=== PATIENT | female | born 1965 | race American Indian/Alaskan Native ===

== ENCOUNTER 2016-08-15 20:22 | Inpatient (IN) | payer OTHER ==
[2016-08-15] MEDS ORDERED: HEPARIN 10,000 UNITS/10 ML IV ONE (20:28)
[2016-08-15] MEDS ORDERED: HEPARIN IV ONE (20:28)
[2016-08-15] MEDS ORDERED: NACL 0.9% 1000 ML 1,000 ML IV ONE (20:28)
[2016-08-15] MEDS ORDERED: NACL 0.9% 500 ML 500 ML IV ONE (20:29)
[2016-08-15] MEDS ORDERED: ZOFRAN IV ONE (20:29)
[2016-08-15] MEDS ORDERED: HEPARIN 10,000 UNITS/10 ML ONE ×2 (20:34→20:46)
--- NOTE | 2016-08-15 20:37 | Emergency Department Report ---
ED Chest Pain HPI - General Stated Complaint: CHEST PAIN Time Seen by Provider: 08/15/16 20:27 Source: patient, EMS Mode of arrival: Stretcher Limitations: Other - History of Present Illness Initial Comments: 50-year-old female with apast medical history presents to the Hospital complaining of nausea, chest pain, diaphoresis. EKG in route just acute VT. This was not transmitted prior to patient arrival. Patient is mowing the lawn at 7 PM and developed nausea, generalized weakness, and diaphoresis. Patient did develop chest pain around to the hospital described as a tightness and received aspirin and 1 nitroglycerin with improvement. Patient initially pain- free upon arrival with continued diaphoresis. Patient denies any past medical history and states her last doctor visit was 2 weeks ago. Patient does smoke cigarettes. - Related Data Allergies Allergy/AdvReac Type Severity Reaction Status Date / Time No Known Allergies Allergy Unverified 08/15/16 20:47 Heart Score - HEART Score History: Highly suspicious EKG: Significant ST-depression Age: 45-65 Risk factors: 1-2 risk factors Troponin: < normal limit HEART Score: 6 ED Review of Systems ROS: Stated complaint: CHEST PAIN Other details as noted in HPI Comment: All other systems reviewed and negative Other: Constitutional: No fevers chills Eyes: No eye pain visual changes ENT: No ear pain or throat pain Neck: Denies pain Respiratory: Denies cough wheezing shortness of breath Cardiovascular: Denies palpitations, syncope GI: Denies abdominal pain, vomiting, diarrhea : Denies dysuria Musculoskeletal: Denies back pain, joint swelling Skin: Denies rash, lesions, erythema Neurologic: Denies headache, numbness, weakness Psychiatric: Denies suicidal ideation, hallucinations ED Past Medical Hx - Past Medical History Previous Medical History?: No - Surgical History Past Surgical History?: No - Social History Smoking Status: Current Every Day Smoker Substance Use Type: Alcohol ED Physical Exam - General Limitations: Other - Other Other exam information: General: No limitations Head exam: Atraumatic, normocephalic Eyes exam: Normal appearance ENT: Moist mucous membrane, normal oropharynx Neck exam: Normal inspection, full range of motion, no meningismus nontender Respiratory exam: Clear to auscultation bilateral, no wheezes, rales, crackles Cardiovascular: Normal rate and rhythm, normal heart sounds Abdomen: Soft, nondistended, and nontender, with normal bowel sounds, no rebound, or guarding Extremity: Full range of motion normal inspection no deformity, no calf tenderness or edema Back: Normal Inspection, full range of motion, no tenderness Neurologic: Alert, oriented x3, cranial nerves intact, no motor or sensory deficit Psychiatric: normal affect, normal mood Skin: Diaphoresis ED Course Vital Signs 08/15/16 08/15/16 20:31 21:39 Pulse Rate 78 74 Respiratory 24 16 Rate Blood Pressure 89/55 117/80 [Left] O2 Sat by Pulse 98 Oximetry - Reevaluation(s) Reevaluation #1: 08/15/16 20:40 Pain has redeveloped since presenting to the ED. Patient has significant hypotension after nitroglycerin which has since resolved. Suspect that patient has a inferior wall /right ventricle VT and has attempted to give further nitrates. Dilaudid 0.5 mg ordered for pain. Heparin drip has been ordered. - Consultations Consultation #1: 08/15/16 20:20 EMS EKG and subsequently EKG obtained here verifies ST elevation VT. He is her reviewed by Dr. Domo Dos Santos it lead demolition hammer operator who agrees and we'll activate the Fire Prevention Inspector. Agrees a heparin drip. GIOVANNY score - Giovanny Score Age > 65: (0) No Aspirin use within the Past 7 Days: (0) No 3 or more CAD Risk Factors: (1) Yes 2 or more Angina events in past 24 hrs: (1) Yes Known CAD with more than 50% Stenosis: (0) No Elevated Cardiac Markers: (0) No ST Deviation Greater than 0.5mm: (1) Yes GIOVANNY Score: 3 ED Medical Decision Making - Lab Data Result diagrams: 08/15/16 20:37 08/15/16 20:37 Lab Results 08/15/16 08/15/16 08/15/16 Range/Units 20:26 20:37 20:37 WBC 6.6 (4.5-11.0) K/mm3 RBC 4.40 (3.65-5.03) M/mm3 Hgb 11.9 (10.1-14.3) gm/dl Hct 36.4 (30.3-42.9) % MCV 83 (79-97) fl MCH 27 L (28-32) pg MCHC 33 (30-34) % RDW 14.7 (13.2-15.2) % Plt Count 290 (140-440) K/mm3 Lymph % (Auto) Concert Singer Seg Neutrophils % Concert Singer PT 12.4 (12.2-14.9) Sec. INR 0.88 (0.87-1.13) APTT 26.4 (24.2-36.6) Sec. Sodium (137-145) mmol/L Potassium (3.6-5.0) mmol/L Chloride (98-107) mmol/L Carbon Dioxide (22-30) mmol/L Anion Gap mmol/L BUN (7-17) mg/dL Creatinine (0.7-1.2) mg/dL Estimated GFR ml/min BUN/Creatinine Ratio % Glucose (65-100) mg/dL POC Glucose 128 H (70-105) Calcium (8.4-10.2) mg/dL Total Creatine Kinase (30-135) units/L CK-MB (CK-2) (0.0-4.0) ng/mL CK-MB (CK-2) Rel Index (0-4) Troponin T (0.00-0.029) ng/mL Blood Type Antibody Screen 08/15/16 08/15/16 Range/Units 20:37 20:37 WBC (4.5-11.0) K/mm3 RBC (3.65-5.03) M/mm3 Hgb (10.1-14.3) gm/dl Hct (30.3-42.9) % MCV (79-97) fl MCH (28-32) pg MCHC (30-34) % RDW (13.2-15.2) % Plt Count (140-440) K/mm3 Lymph % (Auto) Seg Neutrophils % PT (12.2-14.9) Sec. INR (0.87-1.13) APTT (24.2-36.6) Sec. Sodium 141 (137-145) mmol/L Potassium 3.3 L (3.6-5.0) mmol/L Chloride 104.5 (98-107) mmol/L Carbon Dioxide 20 L (22-30) mmol/L Anion Gap 20 mmol/L BUN 16 (7-17) mg/dL Creatinine 0.8 (0.7-1.2) mg/dL Estimated GFR > 60 ml/min BUN/Creatinine Ratio 20.00 % Glucose 122 H (65-100) mg/dL POC Glucose (70-105) Calcium 9.1 (8.4-10.2) mg/dL Total Creatine Kinase 347 H (30-135) units/L CK-MB (CK-2) 3.4 (0.0-4.0) ng/mL CK-MB (CK-2) Rel Index 0.9 (0-4) Troponin T < 0.010 (0.00-0.029) ng/mL Blood Type O POSITIVE Antibody Screen TNR - EKG Data -: EKG Interpreted by Me (acute ST elevation inferior and anteriorly) - Medical Decision Making Patient requires emergent catheterization for ST elevation VT. Heparin, Zofran , Dilaudid given the ED. Nitrates were not given due to probability of RV infarct in associated hypotension after receiving nitroglycerin in route. - Differential Diagnosis VT, PE, dissection Critical Care Time: No Critical care attestation.: If time is entered above; I have spent that time in minutes in the direct care of this critically ill patient, excluding procedure time. ED Disposition Clinical Impression: Acute inferior myocardial infarction, Tobacco use Disposition: - OP ADMIT IP TO THIS HOSP Is pt being admited?: Yes Condition: Stable Time of Disposition: 20:44 (Dr Alex Dos Santos/it lead)
[2016-08-15] MEDS ORDERED: DILAUDID IV ONE (20:38)
[2016-08-15 20:45] LABS: Hematocrit 36.4 % (30.3-42.9); Hemoglobin 11.9 gm/dl (10.1-14.3); Mean Corpuscular HGB Conc 33 % (30-34); Mean Corpuscular Hemoglobin 27 pg (28-32); Mean Corpuscular Volume 83 fl (79-97); Platelet Count 290 K/mm3 (140-440); Red Cell Distribution Width 14.7 % (13.2-15.2); White Blood Count 6.6 K/mm3 (4.5-11.0)
[2016-08-15] MEDS ORDERED: HEPARIN/NS 5000 UNIT/500ML(CATH LAB) 1,000 ML IR ONE (20:46)
[2016-08-15] MEDS ORDERED: CALAN ONE (20:46)
[2016-08-15] MEDS ORDERED: XYLOCAINE 2% INFILTRATI ONE (20:47)
[2016-08-15] MEDS ORDERED: NITROGLYCERIN SYRINGE 3 ML ONE (20:47)
[2016-08-15] MEDS ORDERED: SUBLIMAZE ONE (20:47)
[2016-08-15] MEDS ORDERED: VERSED ONE (20:47)
[2016-08-15] MEDS ORDERED: NACL 0.9% 1000 ML 1,000 ML ONE (20:51)
[2016-08-15] MEDS ORDERED: AGGRASTAT DRIP (12.5 MG/250 ML) 12,500 MCG/250 ML BAG IV ONE (20:51)
[2016-08-15 20:55] LABS: INR 0.88 (0.87-1.13)
[2016-08-15 20:56] LABS: Partial Thromboplastin Time 26.4 Sec. (24.2-36.6)
[2016-08-15 21:00] LABS: Creatine Kinase MB 3.4 ng/mL (0.0-4.0)
[2016-08-15] MEDS ORDERED: HEPARIN/ 0.45% NACL-25,000 UNIT/500 ML 25,000 UNIT/500 ML BAG IV SCH (21:00)
[2016-08-15 21:01] LABS: Anion Gap 20 mmol/L; Blood Urea Nitrogen 16 mg/dL (7-17); Calcium 9.1 mg/dL (8.4-10.2); Carbon Dioxide 20 mmol/L (22-30); Chloride 104.5 mmol/L (98-107); Creatine Kinase 347 units/L (30-135); Glucose 122 mg/dL (65-100); Potassium 3.3 mmol/L (3.6-5.0); Sodium 141 mmol/L (137-145)
[2016-08-15] MEDS ORDERED: HEPARIN/NS 5000 UNIT/500ML(CATH LAB) 500 ML IR ONE (21:15)
[2016-08-15] MEDS ORDERED: ATROPINE 0.1% (CARDIAC) ONE (21:38)
[2016-08-15] MEDS ORDERED: ZOFRAN ONE (21:39)
[2016-08-15] MEDS: AGGRASTAT DRIP (12.5 MG/250 ML) 12,500 MCG/250 ML BAG IV SCH (21:43)
[2016-08-15] MEDS ORDERED: ALUM-MAG HYDROX-SIMETH 200-200-20MG/5ML ONE (21:49)
[2016-08-15] MEDS ORDERED: BRILINTA ONE (21:49)
[2016-08-15] MEDS ORDERED: NACL 0.9% 1000 ML 1,000 ML IV SCH (22:00)
[2016-08-15 22:02] LABS: Basophils % (Manual) 0 % (0.0-1.8); Blastocytes % (Manual) 0 %
[2016-08-15] MEDS ORDERED: XANAX PO PRN (22:02)
[2016-08-15 22:03] LABS: Diff Status Complete; Platelet Estimate Consistent w Auto; RBC Morphology Normal
--- NOTE | 2016-08-15 22:12 | History and Physical Report ---
History of Present Illness Date of examination: 08/15/16 Date of admission: 08/15/2016 Chief complaint: Chest pain History of present illness: 50-year-old female with nio significant past medical history presented to the hospital with complainants of chest pain. Chest pain associated with nausea, chest pain, diaphoresis. apparently patient was mowing the lawn at 7 PM and developed nausea, generalized weakness, and diaphoresis. EKG done in the field revealed acute AK. Patient was immediately taken to the mechanical laboratory technician and had primary PCI of the RCA. Patient being admitted for further work up and treatment. Patient currently chest pain free and hemodynamicaly stable.. Past History Past Medical History: No medical history Social history: smoking Family history: CAD Medications and Allergies Allergies Allergy/AdvReac Type Severity Reaction Status Date / Time No Known Allergies Allergy Unverified 08/15/16 20:47 Active Meds: Active Medications Aspirin (Baby Aspirin) 81 mg PO QDAY EMY Tirofiban/Sodium Chloride (Aggrastat Drip (12.5 Mg/250 Ml)) 12,500 mcg in 250 mls @ 0 mls/hr IV DIRECT EMY; Per Protocol PRN Reason: Protocol Sodium Chloride (Nacl 0.9% 1000 Ml) 1,000 mls @ 100 mls/hr IV DIRECT EMY Ticagrelor (Brilinta) 90 mg PO BID EMY Review of Systems All systems: negative (as mentioned in the H&P) Physical Examination Vital Signs Pulse Resp BP Pulse Ox 78 24 89/55 98 08/15/16 20:31 08/15/16 20:31 08/15/16 20:31 08/15/16 20:31 General appearance: no acute distress Neck: Positive: neck supple Cardiac: Positive: Reg Rate and Rhythm Lungs: Positive: Normal Exam, clear to auscultation Neuro: Positive: Grossly Intact Abdomen: Positive: Unremarkable Female genitourinary: deferred Extremities: Present: normal Results 08/15/16 20:37 08/15/16 20:37 Cardiac Enzymes 08/15/16 Range/Units 20:37 CK-MB (CK-2) 3.4 (0.0-4.0) ng/mL Coagulation 08/15/16 Range/Units 20:37 PT 12.4 (12.2-14.9) Sec. INR 0.88 (0.87-1.13) APTT 26.4 (24.2-36.6) Sec. CBC 08/15/16 Range/Units 20:37 WBC 6.6 (4.5-11.0) K/mm3 RBC 4.40 (3.65-5.03) M/mm3 Hgb 11.9 (10.1-14.3) gm/dl Hct 36.4 (30.3-42.9) % Plt Count 290 (140-440) K/mm3 Comprehensive Metabolic Panel 08/15/16 Range/Units 20:37 Sodium 141 (137-145) mmol/L Potassium 3.3 L (3.6-5.0) mmol/L Chloride 104.5 (98-107) mmol/L Carbon Dioxide 20 L (22-30) mmol/L BUN 16 (7-17) mg/dL Creatinine 0.8 (0.7-1.2) mg/dL Glucose 122 H (65-100) mg/dL Calcium 9.1 (8.4-10.2) mg/dL EKG interpretations - Telemetry EKG Rhythm: Sinus Rhythm (acute inferior STEMI) Assessment and Plan 1. Acute STEMI 2. S/P PCI of the RCA with ROSITA 3. Smoking 4. Ischemic cardiomyopathy Plan DAPT IV hydration statins Aggrastat Echo Once BP improves will then start patient on beta blockers and KARLA inhibitors
--- NOTE | 2016-08-15 23:04 | Cardiac Catherization Report ---
PROCEDURE PERFORMED: 1. Selective left and right coronary angiogram. 2. Left ventriculogram. 3. Successful percutaneous intervention of the mid right coronary artery. 4. Limited right femoral angiogram. 5. Successful deployment of Angio-Seal vascular closure device. PATIENT SITTER: Olena Dos Santos M.D. INDICATION: Acute inferior ST elevation TN. PROCEDURE IN DETAIL: 1. The patient was prepped and draped in a sterile fashion after informed consent. 2. The right groin was anesthetized using local Lidocaine infiltration. 3. The right femoral artery was entered using the Seldinger technique, followed by the placement of a 6-Cuban sheath. 4. Selective left and right coronary angiography was performed using 6-Cuban Juan catheters. Angiograms were done in multiple projections. 5. Selective left ventricular angiography was done using a 6-Cuban pigtail catheter. Left ventricular angiography was performed in the right anterior oblique projection. 6. The catheters were withdrawn, the sheath removed, and hemostasis was achieved. 7. The patient was transferred to the post cardiac catheterization unit in stable condition. FINDINGS: Hemodynamics: AO 109/62, LV 100/16, LVEDP is 23. Left ventriculogram was suboptimal, that is inferior hypokinesis, EF around 40%. ANGIOGRAM DETAILS: 1. Left main is angiographically normal. 2. LAD is a medium caliber vessel, prominent myocardial bridging of the mid LAD is noted. 3. The circumflex is angiographically normal. 4. The RCA is a medium caliber dominant artery that has a 90% thrombotic occlusion in the mid vessel. IMPRESSION: 1. Critical coronary artery disease including greater than 90-95% thrombotic stenosis of the mid right coronary artery. 2. 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 3. Ischemic cardiomyopathy, EF of around 40% with inferior hypokinesis. PLAN: 1. Proceed with PCI of the right coronary artery. 2. Intravenous heparin was used to maintain therapeutic ACT. A JR4 guide catheter was used to engage the right coronary artery. A BMW wire was used as a standard guidewire. After initial predilatation, a 2.75 x 18 drug-eluting stent was deployed across the stenosis with excellent results. The resultant angiogram showed complete resolution of the stenosis with no residual thrombus dissection. The patient tolerated the procedure well and was chest pain free at the end of the procedure. Guide was removed over the wire. Limited right femoral angiogram sheath above bifurcation. Angio-Seal was used for vascular closure, complete hemostasis obtained. IMPRESSION: 1. Status post successful percutaneous intervention of the mid right coronary artery in the setting of acute inferior ST elevation myocardial infarction. 2. Greater than 90% stenosis of the right coronary artery, reduced to 0%. 3. A 2.75 x 18 drug-eluting stent was deployed. PLAN: 1. Aspirin for life. 2. Brilinta for 1 year, preferably more. 3. Routine angiogram, pharmacotherapy post-PCI. 4. Routine Angio-Seal Groin care. JOB# [id number] RR/NTS
[2016-08-15] MEDS: BABY ASPIRIN PO SCH (23:12)
[2016-08-15] MEDS: BRILINTA PO SCH (23:14)
[2016-08-16] MEDS ORDERED: TYLENOL ONE (02:14)
[2016-08-16] MEDS ORDERED: DILAUDID IV PRN (02:54)
[2016-08-16] MEDS ORDERED: TYLENOL PO PRN (02:55)
--- NOTE | 2016-08-16 03:53 | Consultation ---
History of Present Illness - Reason for Consult Consult date: 08/16/16 STEMI, POST PCI CARE Requesting physician: NIKO HOLLAND - History of Present Illness 50 y/o female who was mowing the lawn last night when she developed acute chest pain, and diaphoresis. EMS arrived and EKG per ED report was stemi. Cards notified upon arrival as patient was still having chest pain and EKG here consistent with STEMI. pathology laboratory aide activated and patient received PCI to RCA. Currently asleep, chest pain free. Aggrastat infusing Past History Past Medical History: No medical history, other (unable to obtain) Past Surgical History: Other (unable to obtain) Social history: smoking Family history: CAD Medications and Allergies Allergies Allergy/AdvReac Type Severity Reaction Status Date / Time No Known Allergies Allergy Unverified 08/15/16 20:47 Active Meds: Active Medications Acetaminophen (Tylenol) 650 mg PO Q4H PRN PRN Reason: Pain, Mild (1-3) Alprazolam (Xanax) 0.25 mg PO Q8HR PRN PRN Reason: Anxiety Last Admin: 08/15/16 23:13 Dose: 0.25 mg Aspirin (Baby Aspirin) 81 mg PO QDAY EMY Last Admin: 08/15/16 23:12 Dose: 81 mg Atorvastatin Calcium (Lipitor) 80 mg PO QHS EMY Famotidine (Pepcid) 20 mg PO BID EMY Hydromorphone HCl (Dilaudid) 0.5 mg IV Q3H PRN PRN Reason: Pain , Severe (7-10) Heparin Sodium/Sodium Chloride (Heparin/ 0.45% Nacl-25,000 Unit/500 Ml) 25,000 unit in 500 mls @ 20 mls/hr IV TITRATE EMY; 1,000 UNITS/HR PRN Reason: Protocol Last Admin: 08/15/16 21:03 Dose: 1,000 units/hr, 20 mls/hr Tirofiban/Sodium Chloride (Aggrastat Drip (12.5 Mg/250 Ml)) 12,500 mcg in 250 mls @ 15 mls/hr IV DIRECT EMY PRN Reason: Protocol Stop: 08/16/16 16:00 Last Admin: 08/15/16 21:43 Dose: 250 mls Sodium Chloride (Nacl 0.9% 1000 Ml) 1,000 mls @ 100 mls/hr IV DIRECT EMY Ticagrelor (Brilinta) 90 mg PO BID EMY Last Admin: 08/15/16 23:14 Dose: 90 mg Review of Systems All systems: negative Exam - Constitutional Vitals: Temp Pulse Resp BP Pulse Ox 97.9 F 74 13 133/79 100 08/16/16 00:26 08/16/16 03:11 08/16/16 03:11 08/16/16 03:11 08/16/16 03:11 General appearance: Present: no acute distress, other (asleep) - EENT Eyes: Present: PERRL, EOM intact ENT: hearing intact - Neck Neck: Present: supple - Respiratory Respiratory effort: normal Respiratory: bilateral: CTA - Cardiovascular Rhythm: regular Heart Sounds: Present: S1 & S2 - Extremities Extremities: no ischemia, pulses intact Results - Labs CBC & Chem 7: 08/15/16 20:37 08/15/16 20:37 - Imaging and Cardiology Chest x-ray: image reviewed (clear CXR) Assessment and Plan 50 y/o female with STEMI. 1. PCI to RCA, now will need ASA, Plavix vs Brillinta 2. Needs statin BB, BB held earlier secondary to marginal BP's but BP and heart rate improved 3. replace K and Mag to keep at 4 and 2 respectively 4. Wean supplemental O2 off 5. Follow up cardiology recs for later today. CCT 31 minutes.
[2016-08-16 05:32] LABS: Basophils % (Auto) 0.6 % (0.0-1.8); Eosinophils % (Auto) 0.7 % (0.0-4.3); Hematocrit 37.7 % (30.3-42.9); Hemoglobin 12.1 gm/dl (10.1-14.3); Mean Corpuscular HGB Conc 32 % (30-34); Mean Corpuscular Hemoglobin 27 pg (28-32); Mean Corpuscular Volume 84 fl (79-97); Platelet Count 264 K/mm3 (140-440); Red Blood Count 4.47 M/mm3 (3.65-5.03); Red Cell Distribution Width 14.6 % (13.2-15.2); White Blood Count 6.4 K/mm3 (4.5-11.0)
[2016-08-16 05:57] LABS: Creatine Kinase MB 96.1 ng/mL (0.0-4.0)
[2016-08-16 06:02] LABS: Anion Gap 20 mmol/L; BUN/Creatinine Ratio 18.57; Blood Urea Nitrogen 13 mg/dL (7-17); Calcium 8.8 mg/dL (8.4-10.2); Carbon Dioxide 21 mmol/L (22-30); Chloride 106.9 mmol/L (98-107); Creatine Kinase 1093 units/L (30-135); Glucose 102 mg/dL (65-100); Potassium 5.1 mmol/L (3.6-5.0); Sodium 143 mmol/L (137-145)
[2016-08-16 06:19] LABS: Cholesterol 185 mg/dL (50-199); HDL Cholesterol 60 mg/dL (40-59); LDL Cholesterol,Direct 112 mg/dL (50-130); Triglycerides 69 mg/dL (2-149)
[2016-08-16] MEDS: PEPCID PO SCH ×2 (09:35→22:42)
[2016-08-16] MEDS: BABY ASPIRIN PO SCH (09:35)
[2016-08-16] MEDS: BRILINTA PO SCH ×2 (09:35→22:42)
--- NOTE | 2016-08-16 09:45 | XRay Report ---
AP CHEST: HISTORY: chest pain AP view of the chest demonstrates a normal mediastinal and cardiac contour with clear lungs and normal bony and soft tissue structures. IMPRESSION: Unremarkable AP chest.
--- NOTE | 2016-08-16 11:57 | Progress Note ---
Assessment and Plan 1. Unstable angina 2. Coronary artery disease status post PCI to the right coronary artery 3. Ischemic cardiomyopathy LV ejection fraction of 40% Plan. Cardiac-montez stable continue present management transfer to telemetry Subjective Date of service: 08/16/16 Interval history: No cardiac symptoms Objective Vital Signs Temp Pulse Resp BP Pulse Ox 08/16/16 11:01 86 21 127/67 08/16/16 10:51 63 18 127/67 08/16/16 10:41 59 L 15 127/67 08/16/16 10:31 74 10 L 127/67 08/16/16 10:21 70 12 127/67 08/16/16 10:11 72 9 L 127/67 08/16/16 10:00 60 11 L 127/67 97 08/16/16 09:51 62 14 129/38 08/16/16 09:41 78 10 L 129/38 08/16/16 09:31 62 11 L 129/38 08/16/16 09:21 64 12 123/42 08/16/16 09:11 60 11 L 123/42 08/16/16 09:01 61 12 123/42 08/16/16 08:50 82 16 112/57 08/16/16 08:41 74 17 123/42 100 08/16/16 08:30 61 14 123/42 100 08/16/16 08:21 67 11 L 118/49 100 08/16/16 08:11 60 16 115/38 99 08/16/16 08:00 98.3 F 69 17 115/38 100 08/16/16 07:51 61 14 121/66 100 08/16/16 07:41 59 L 10 L 118/63 100 08/16/16 07:31 62 11 L 118/63 100 08/16/16 07:21 56 L 15 119/68 98 08/16/16 07:11 61 12 130/61 99 08/16/16 07:00 58 L 8 L 130/61 99 08/16/16 06:51 69 16 126/70 100 08/16/16 06:40 64 16 126/70 99 08/16/16 06:30 73 14 126/70 99 08/16/16 06:21 66 17 124/71 97 08/16/16 06:11 72 14 124/67 100 08/16/16 06:00 78 13 124/67 100 08/16/16 05:51 67 16 109/48 100 08/16/16 05:41 71 16 119/64 100 08/16/16 05:30 69 12 119/64 100 08/16/16 05:21 67 18 120/69 100 08/16/16 05:11 72 11 L 110/54 100 08/16/16 05:01 74 16 110/54 100 08/16/16 04:51 66 12 107/53 100 08/16/16 04:41 78 14 123/69 100 08/16/16 04:30 70 15 123/69 100 08/16/16 04:21 69 16 116/52 100 08/16/16 04:11 69 14 140/74 100 08/16/16 04:00 98.8 F 83 14 140/74 100 08/16/16 03:51 62 16 127/75 100 08/16/16 03:41 71 14 133/74 100 08/16/16 03:30 69 14 133/74 100 08/16/16 03:21 71 14 143/83 100 08/16/16 03:11 74 13 133/79 100 08/16/16 03:00 78 14 133/79 100 08/16/16 02:51 73 16 123/72 100 08/16/16 02:41 72 17 122/70 100 08/16/16 02:30 74 13 122/70 100 08/16/16 02:21 87 15 125/74 100 08/16/16 02:11 78 16 127/73 100 08/16/16 02:00 76 16 127/73 100 08/16/16 01:51 75 16 118/67 100 08/16/16 01:41 73 14 122/73 100 08/16/16 01:30 75 12 122/73 100 08/16/16 01:23 76 11 L 100 08/16/16 00:26 97.9 F 08/16/16 00:00 129/68 93 08/15/16 23:50 143/76 96 08/15/16 23:41 134/77 96 08/15/16 23:30 61 11 L 134/77 96 08/15/16 23:20 62 24 135/68 100 08/15/16 23:11 67 18 123/75 94 08/15/16 23:06 123/75 - Physical Examination General: Appears Well, No Apparent Distress HEENT: Positive: PERRL, Normocephaly, Mucus Membranes Moist Neck: Positive: neck supple. Negative: JVD/HJR Cardiac: Positive: Regular Rate, S1/S2 Lungs: Positive: clear to auscultation, No Wheeze, Rales, Rhonchi Neuro: Positive: Grossly Intact Abdomen: Positive: Unremarkable, Soft Extremities: Present: normal. Absent: edema - Labs and Meds Cardiac Enzymes 08/16/16 Range/Units 04:58 CK-MB (CK-2) 96.1 H (0.0-4.0) ng/mL Lipids 08/16/16 Range/Units 04:58 Triglycerides 69 (2-149) mg/dL Cholesterol 185 (50-199) mg/dL HDL Cholesterol 60 H (40-59) mg/dL Cholesterol/HDL Ratio 3.08 % CBC 08/16/16 Range/Units 04:58 WBC 6.4 (4.5-11.0) K/mm3 RBC 4.47 (3.65-5.03) M/mm3 Hgb 12.1 (10.1-14.3) gm/dl Hct 37.7 (30.3-42.9) % Plt Count 264 (140-440) K/mm3 Lymph # 2.2 (1.2-5.4) K/mm3 [place] # 0.4 (0.0-0.8) K/mm3 Eos # 0.0 (0.0-0.4) K/mm3 Baso # 0.0 (0.0-0.1) K/mm3 Comprehensive Metabolic Panel 08/16/16 Range/Units 04:58 Sodium 143 (137-145) mmol/L Potassium 5.1 H D (3.6-5.0) mmol/L Chloride 106.9 (98-107) mmol/L Carbon Dioxide 21 L (22-30) mmol/L BUN 13 (7-17) mg/dL Creatinine 0.7 (0.7-1.2) mg/dL Glucose 102 H (65-100) mg/dL Calcium 8.8 (8.4-10.2) mg/dL - Telemetry EKG Rhythm: Sinus Rhythm
[2016-08-16] MEDS: AGGRASTAT DRIP (12.5 MG/250 ML) 12,500 MCG/250 ML BAG IV SCH (12:26)
--- NOTE | 2016-08-16 15:10 | Event Note ---
Date: 08/16/16 Placed transfer orders for cardiology at the request of staff as we need beds and senior international tax manager software quality test engineer did not place transfer orders. Cardiology is still the primary. Please call them for additional orders or questions.
[2016-08-17 10:00] LABS: Hematocrit 33.6 % (30.3-42.9); Hemoglobin 11.2 gm/dl (10.1-14.3)
--- NOTE | 2016-08-17 10:29 | Progress Note ---
Assessment and Plan 1. Coronary artery disease status post PCI to the right coronary artery 2. Ischemic cardiomyopathy LV ejection fraction of 40% Plan. Cardiac-montez stable continue present management transfer to telemetry. Check CBC and BMP before discharge Subjective Date of service: 08/17/16 Interval history: No cardiac symptoms Objective Vital Signs Temp Pulse Pulse Pulse Resp BP BP 08/17/16 08:50 98.3 F 66 12 08/17/16 07:18 98.4 F 0 L 66 20 0/0 08/17/16 05:14 57 L 08/17/16 01:59 72 20 08/17/16 01:47 98.2 F 0 L 72 20 0/0 08/16/16 21:51 98.3 F 0 L 65 20 0/0 08/16/16 21:44 08/16/16 18:29 98.6 F 64 64 18 130/71 08/16/16 17:00 64 14 106/61 08/16/16 16:50 64 13 106/61 08/16/16 16:40 62 15 106/61 08/16/16 16:30 73 15 106/61 08/16/16 16:20 63 18 106/61 08/16/16 16:10 66 21 106/61 08/16/16 16:00 97 F L 62 12 106/61 08/16/16 15:50 58 L 19 106/61 08/16/16 15:40 64 17 106/61 08/16/16 15:30 90 18 106/61 08/16/16 15:20 62 15 106/61 08/16/16 15:11 63 13 106/61 08/16/16 15:01 65 12 106/61 08/16/16 14:51 67 18 113/65 08/16/16 14:41 60 15 113/65 08/16/16 14:31 59 L 17 113/65 08/16/16 14:21 62 19 113/65 08/16/16 14:11 62 16 113/65 08/16/16 14:00 61 15 107/63 08/16/16 13:51 62 16 113/65 08/16/16 13:41 57 L 15 113/65 08/16/16 13:31 58 L 17 113/65 08/16/16 13:21 60 18 113/65 08/16/16 13:11 60 14 113/65 06/24/17 13:01 62 14 113/65 08/16/16 12:51 71 11 L 121/64 08/16/16 12:41 67 18 121/64 08/16/16 12:31 62 16 121/64 08/16/16 12:21 63 12 121/64 08/16/16 12:11 65 21 121/64 08/16/16 12:00 98.5 F 65 10 L 121/64 08/16/16 11:51 76 13 116/40 08/16/16 11:41 62 14 116/40 08/16/16 11:31 70 10 L 116/40 08/16/16 11:21 78 16 116/40 08/16/16 11:11 64 16 116/40 08/16/16 11:01 86 21 127/67 08/16/16 10:51 63 18 127/67 08/16/16 10:41 59 L 15 127/67 08/16/16 10:31 74 10 L 127/67 BP Pulse Ox 08/17/16 08:50 119/61 99 08/17/16 07:18 95/51 97 08/17/16 05:14 08/17/16 01:59 08/17/16 01:47 101/50 96 08/16/16 21:51 123/57 100 08/16/16 21:44 99 08/16/16 18:29 98 08/16/16 17:00 08/16/16 16:50 08/16/16 16:40 08/16/16 16:30 08/16/16 16:20 08/16/16 16:10 08/16/16 16:00 08/16/16 15:50 08/16/16 15:40 08/16/16 15:30 08/16/16 15:20 08/16/16 15:11 08/16/16 15:01 08/16/16 14:51 08/16/16 14:41 08/16/16 14:31 08/16/16 14:21 08/16/16 14:11 08/16/16 14:00 08/16/16 13:51 08/16/16 13:41 08/16/16 13:31 08/16/16 13:21 08/16/16 13:11 08/16/16 13:01 08/16/16 12:51 08/16/16 12:41 08/16/16 12:31 08/16/16 12:21 08/16/16 12:11 08/16/16 12:00 08/16/16 11:51 08/16/16 11:41 08/16/16 11:31 08/16/16 11:21 08/16/16 11:11 08/16/16 11:01 08/16/16 10:51 08/16/16 10:41 08/16/16 10:31 - Physical Examination General: Appears Well, No Apparent Distress HEENT: Positive: PERRL, Normocephaly, Mucus Membranes Moist Neck: Positive: neck supple. Negative: JVD/HJR Cardiac: Positive: Regular Rate, S1/S2. Negative: S3 Lungs: Positive: clear to auscultation, No Wheeze, Rales, Rhonchi Neuro: Positive: Grossly Intact Abdomen: Positive: Unremarkable, Soft Extremities: Present: normal. Absent: edema - Labs and Meds CBC 08/17/16 Range/Units 08:59 Hgb 11.2 (10.1-14.3) gm/dl Hct 33.6 (30.3-42.9) % Plt Count 230 (140-440) K/mm3
[2016-08-17] MEDS: BRILINTA PO SCH ×2 (10:53→22:10)
[2016-08-17] MEDS: PEPCID PO SCH ×2 (10:53→22:11)
[2016-08-17] MEDS: BABY ASPIRIN PO SCH (10:53)
[2016-08-17 14:34] LABS: Basophils % (Auto) 0.6 % (0.0-1.8); Eosinophils % (Auto) 2.7 % (0.0-4.3); Hematocrit 34.2 % (30.3-42.9); Hemoglobin 11.2 gm/dl (10.1-14.3); Mean Corpuscular HGB Conc 33 % (30-34); Mean Corpuscular Hemoglobin 27 pg (28-32); Mean Corpuscular Volume 83 fl (79-97); Platelet Count 235 K/mm3 (140-440); Red Blood Count 4.11 M/mm3 (3.65-5.03); Red Cell Distribution Width 14.7 % (13.2-15.2); White Blood Count 5.2 K/mm3 (4.5-11.0)
[2016-08-17 14:50] LABS: Anion Gap 17 mmol/L; Blood Urea Nitrogen 14 mg/dL (7-17); Calcium 8.7 mg/dL (8.4-10.2); Carbon Dioxide 23 mmol/L (22-30); Glucose 68 mg/dL (65-100); Sodium 141 mmol/L (137-145)
[2016-08-18] MEDS: PEPCID PO SCH (10:45)
[2016-08-18] MEDS: BABY ASPIRIN PO SCH (10:45)
[2016-08-18] MEDS: BRILINTA PO SCH (10:45)
--- NOTE | 2016-08-18 11:42 | Discharge Summary ---
Providers - Providers Date of Admission: 08/15/16 21:58 Date of discharge: 08/18/16 Attending physician: NIKO HOLLAND Primary care physician: BOARD OF EDUCATION SECRETARY Hospitalization Condition: Good Hospital course: 50yr old woman who was bought in with chest pain. An EKG showed acute ST elevation myocardial infarction and she was taken to the cardiac lab courier emergently. 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 Ejection fraction 60-65% on echocardiogram. Patient has remained stable throughout hospital course. She has remained chest pain free and is ready for discharge home. Medical therapy to include aspirin, brilinta, statin and beta santo therapy. KARLA inhibitor held due to hypotension. Patient will follow up with her digital content producer within 1wk of discharge. If blood pressure allows, will add an ACEi at that time. Disposition: DC-01 TO HOME OR SELFCARE Core Measure Documentation - Palliative Care Palliative Care/ Comfort Measures: Not Applicable - Core Measures Any of the following diagnoses?: acute FL - Acute FL Discharge Requirements Aspirin at discharge: Yes KARLA/ARB for LVSD if EF <40%: No Reason for no KARLA/ARB: Hypotension Beta santo at discharge: Yes Statin for LDL = or >100 mg/dl on DC: Yes Exam - Constitutional Vitals: Temp Pulse Resp BP Pulse Ox 98.3 F 62 18 117/72 100 08/18/16 08:00 08/18/16 08:00 08/18/16 08:00 08/18/16 08:00 08/18/16 08:00 General appearance: Present: no acute distress - EENT Eyes: Present: PERRL ENT: hearing intact - Neck Neck: Present: normal ROM - Respiratory Respiratory effort: normal - Cardiovascular Rhythm: regular - Psychiatric Psychiatric: appropriate mood/affect Plan Activity: advance as tolerated Diet: low fat, low cholesterol, low salt Special Instructions: smoking cessation Follow up with: PRIMARY CARE, [Primary Care Provider] - 3-5 Days Forms: [facility] PCI D/C Instructions Prescriptions: AtorvaSTATin [Lipitor] 80 mg PO QHS #30 tablet Aspirin [Aspirin BABY CHEW TAB] 81 mg PO QDAY #30 tab.chew Carvedilol [Coreg] 3.125 mg PO BID #60 tablet Ticagrelor [Brilinta] 90 mg PO BID #60 tablet
[2016-08-18 13:27] VITALS: BP 142/68
== END 2016-08-18 14:00 | disposition home or self-care (01) | DRG 247 ==
LOC: ED 20:22 → CC1 21:58 → 4A 08-16 18:18
PROVIDERS: ADMIT Internal Medicine Cardiovascular Disease; ATTEND Internal Medicine Cardiovascular Disease
PROC: 027034Z Dilation of Coronary Artery, One Artery with Drug-eluting Intraluminal Device, Percutaneous Approach (ICD-10-PCS; principal; 2016-08-15)
PROC: 4A023N7 Measurement of Cardiac Sampling and Pressure, Left Heart, Percutaneous Approach (ICD-10-PCS; 2016-08-15)
PROC: B2111ZZ Fluoroscopy of Multiple Coronary Arteries using Low Osmolar Contrast (ICD-10-PCS; 2016-08-15)
PROC: B2151ZZ Fluoroscopy of Left Heart using Low Osmolar Contrast (ICD-10-PCS; 2016-08-15)
PROC: B41J1ZZ Fluoroscopy of Other Lower Arteries using Low Osmolar Contrast (ICD-10-PCS; 2016-08-15)
DX: I21.19 ST elevation (STEMI) myocardial infarction involving other coronary artery of inferior wall (principal); I25.110 Atherosclerotic heart disease of native coronary artery with unstable angina pectoris; I25.5 Ischemic cardiomyopathy; F17.210 Nicotine dependence, cigarettes, uncomplicated; Z82.49 Family history of ischemic heart disease and other diseases of the circulatory system; Z79.82 Long term (current) use of aspirin
CPT/HCPCS: 36415; 71010; 80048; 80061; 82550; 82553; 82962; 84484; 85007; 85014; 85018; 85025; 85049; 85347; 85520; 85610; 85730; 86850; 86900; 86901; 92941; 93005; 93010; 93306; 93458; 99406; A9270-GY; C1725; C1760; C1769; C1874; C1887; C1894; C9606; J0461; J1170; J1644; J2250; J2405; J3010; J3246; J7030; J7040; Q9967